=== PATIENT | female | born 1985 | race American Indian/Alaskan Native ===

== ENCOUNTER 2016-08-17 14:43 | Emergency (ER) | payer SELFPAY ==
[2016-08-17 18:11] LABS: Basophils % (Auto) 0.9 % (0.0-1.8); Eosinophils % (Auto) 0.6 % (0.0-4.3); Hematocrit 38.6 % (30.3-42.9); Hemoglobin 12.8 gm/dl (10.1-14.3); Mean Corpuscular HGB Conc 33 % (30-34); Mean Corpuscular Hemoglobin 32 pg (28-32); Mean Corpuscular Volume 96 fl (79-97); Platelet Count 213 K/mm3 (140-440); Red Blood Count 4.03 M/mm3 (3.65-5.03); Red Cell Distribution Width 14.9 % (13.2-15.2)
[2016-08-17 18:13] LABS: Anion Gap 18 mmol/L; BUN/Creatinine Ratio 18.75; Blood Urea Nitrogen 15 mg/dL (7-17); Calcium 8.9 mg/dL (8.4-10.2); Carbon Dioxide 23 mmol/L (22-30); Chloride 97.7 mmol/L (98-107); Glucose 66 mg/dL (65-100); Potassium 3.9 mmol/L (3.6-5.0); Sodium 135 mmol/L (137-145)
[2016-08-17] MEDS ORDERED: LIDOCAINE VISCOUS 2% PO ONE (22:47)
[2016-08-17] MEDS ORDERED: ALUM-MAG HYDROX-SIMETH 200-200-20MG/5ML PO ONE (22:47)
--- NOTE | 2016-08-17 22:51 | Emergency Department Report ---
HPI - General Chief Complaint: Chest Pain Time Seen by Provider: 08/17/16 22:36 - HPI HPI: This is a 30-year-old Afro-[place] Citizen female presents to the emergency department with a complaint of pain to the throat and chest and down into the upper abdomen is been going on for the past 2-3 days. Patient says she feels like she has a lump in the mid chest. She says that it feels like it is hard to get down food, water and sometimes even her own secretions but she is able to do so. The pain is constant but worsens with eating or drinking. She did not take anything for symptoms prior to presentation. She denies any shortness of breath, nausea, vomiting, diaphoresis. No history of NC, CVA, PE/DVT. She does not have a primary care doctor. Past medical history of asthma. No sick contacts at home or recent travel. ED Past Medical Hx - Past Medical History Hx Asthma: Yes Additional medical history: endometriosis - Social History Smoking Status: Never Smoker Substance Use Type: Alcohol - Medications Home Medications: Home Medications Medication Instructions Recorded Confirmed Last Taken Type Ibuprofen [Motrin] 600 mg PO Q8H PRN #50 tablet 12/17/13 07/01/15 Unknown Rx Albuterol Sulfate [Ventolin HFA] 2 puff IH Q4-6H PRN #1 hfa.aer.ad 07/01/15 Unknown Rx guaiFENesin/CODEINE [Robitussin AC] 5 ml PO Q6H PRN #100 ml 07/01/15 Unknown Rx Acetaminophen/Codeine [Tylenol #3] 1 tab PO Q6H PRN #12 tab 02/02/16 Unknown Rx Penicillin Vk [Veetids TAB] 250 mg PO QID #28 tablet 02/02/16 Unknown Rx HYDROcodone/APAP 5-325 [[place] 1 each PO Q6HR PRN #8 tablet 08/18/16 Unknown Rx 5/325] ED Review of Systems ROS: Stated complaint: LUMP IN MIDDLE OF CHEST/DIZZYNESS Other details as noted in HPI Comment: All other systems reviewed and negative Constitutional: denies: chills, fever Eyes: denies: eye pain, eye discharge, vision change ENT: throat pain. denies: ear pain Respiratory: denies: cough, shortness of breath, wheezing Cardiovascular: chest pain. denies: palpitations Gastrointestinal: denies: nausea, vomiting Genitourinary: denies: urgency, dysuria, discharge Musculoskeletal: denies: back pain, joint swelling, arthralgia Skin: denies: rash, lesions Neurological: denies: headache, weakness, paresthesias Physical Exam - Physical Exam Vital Signs: Vital Signs 08/17/16 16:33 Temperature 98.4 F Pulse Rate 92 H Respiratory 18 Rate Blood Pressure 114/78 O2 Sat by Pulse 98 Oximetry Physical Exam: GENERAL: The patient is well-developed well-nourished. HEENT: Normocephalic. Atraumatic. Extraocular motions are intact. Patient has moist mucous membranes. Pupils equal reactive to light bilaterally. NECK: Supple. Trachea is midline. CHEST/LUNGS: Clear to auscultation. There is no respiratory distress noted. HEART/CARDIOVASCULAR: Regular. There is no tachycardia. There is no gallop rub or murmur. ABDOMEN: Abdomen is soft, nontender. Patient has normal bowel sounds. There is no abdominal distention. SKIN: Skin is warm and dry. NEURO: The patient is awake, alert, and oriented. The patient is cooperative. The patient has no focal neurologic deficits. The patient has normal speech and gait. MUSCULOSKELETAL: There is no tenderness or deformity. There is no limitation range of motion. There is no evidence of acute injury. ED Course Vital Signs 08/17/16 16:33 Temperature 98.4 F Pulse Rate 92 H Respiratory 18 Rate Blood Pressure 114/78 O2 Sat by Pulse 98 Oximetry ED Medical Decision Making - Lab Data Result diagrams: 08/17/16 17:43 08/17/16 17:43 - EKG Data -: EKG Interpreted by Me EKG shows normal: sinus rhythm, axis, intervals, QRS complexes, ST-T waves Rate: normal - EKG Data When compared to previous EKG there are: previous EKG unavailable Interpretation: normal EKG, unchanged when compared t (07/01/15) - Radiology Data Radiology results: report reviewed, image reviewed interpreted by me: X-ray of the soft tissue of the neck does not show any foreign body or any acute process. Chest x-ray did not show any acute process. Heart is normal shape and size. No effusions. No pneumothorax. No signs of pneumonia seen. - Medical Decision Making This is a 30-year-old female presents to the emergency department with some midsternal and/or midline chest discomfort appears to worsen with eating or drinking. Patient's vital signs stable throughout her ED course. An x-ray was done of the neck and chest that did not show any foreign body or any signs of occlusion or any acute process. Patient's labs did not show any significant leukocytosis, electrolyte abnormalities, renal insufficiency or glucose abnormalities. Patient had a troponin. EKG does not show any signs of ST elevation NC or cardiac ischemia. Patient was given a GI cocktail and said that it did help some with her discomfort. Patient has a ADIN score of 0. She is low on the well's score criteria and negative on the pulmonary embolus rule out criteria. Patient will be given a referral for primary care and gastroenterology. She was able to display the ability for swallowing liquids well in the emergency department. She will return to the ER with any worsening of her symptoms or any acute distress. - Differential Diagnosis costochondritis, GERD, esophageal obstruction, pneumonia Critical Care Time: No Critical care attestation.: If time is entered above; I have spent that time in minutes in the direct care of this critically ill patient, excluding procedure time. ED Disposition Clinical Impression: Chest pain Qualifiers: Chest pain type: unspecified Qualified Code(s): R07.9 - Chest pain, unspecified Disposition: DISCHARGED TO HOME OR SELFCARE Is pt being admited?: No Condition: Stable Instructions: Chest Pain (ED) Additional Instructions: Please follow-up with a primary care doctor in the next few days. I have also given a referral for a chain offbearer, dr Unger, to follow up regarding the sensation that food and liquid is hard to pass/swallow. Return to the emergency department with any worsening of your symptoms or any acute distress. You've been prescribed a medication that is sedating. Therefore this medication cannot be mixed with alcohol, or taken prior to driving, working, or being responsible for children. Prescriptions: HYDROcodone/APAP 5-325 [[place] 5/325] 1 each PO Q6HR PRN #8 tablet PRN Reason: Pain Referrals: PRIMARY CARE, [Primary Care Provider] - 3-5 Days ELLA NINA MD [Staff Physician] - 3-5 Days JILLIAN UNGER MD [Staff Physician] - 3-5 Days Time of Disposition: 01:16
[2016-08-17 23:38] VITALS: BP 119/64
--- NOTE | 2016-08-17 23:46 | XRay Report ---
FINAL REPORT PROCEDURE: XR NECK SOFT TISSUE TECHNIQUE: Soft tissue neck radiographs, 2 views, including AP and lateral. CPT 99549 HISTORY: Dysphagia. Difficulty swallowing. Hard to swallow food or drink. COMPARISON: No prior studies are available for comparison. FINDINGS: There is no plain film evidence of radiopaque foreign body. There is no plain film evidence of airway narrowing. There is mild curvature of upper thoracic spine to the left. IMPRESSION: 1. There is no plain film evidence of radiopaque foreign body or airway narrowing. 2. There is mild curvature of the upper thoracic spine to the left. 3. If there is continued concern for neck abnormality, additional diagnostic evaluation advised only clinically indicated. 4. Chest x-ray is dictated separately.
--- NOTE | 2016-08-17 23:56 | XRay Report ---
FINAL REPORT PROCEDURE: XR CHEST ROUTINE TWO VIEWS PA AND LATERAL TECHNIQUE: This exam consists of a total of 3 films. These are 1 PA view and 2 lateral views HISTORY: Difficulty swallowing. Dysphagia hard to swallow liquid or food COMPARISON: There no prior chest films to compare FINDINGS: The mediastinal contour and heart size are normal. The lungs are clear with no edema or infiltrate or effusion. There is no plain film evidence of radiopaque foreign IMPRESSION: 1. Negative PA and lateral chest with no plain film evidence of acute finding. 2. Soft tissue neck series performed at the same time as this exam is dictated separately.
== END 2016-08-18 01:39 | disposition home or self-care (01) ==
LOC: ED 14:43
DX: R07.9 Chest pain, unspecified (principal); J45.909 Unspecified asthma, uncomplicated
CPT/HCPCS: 36415; 70360; 71020; 80048; 81025; 84484; 85025; 93005; 93010; 99284

== ENCOUNTER 2019-04-27 00:15 | Emergency (ER) | payer SELFPAY ==
[2019-04-27 01:13] LABS: Bacteria,Urine 1+ /HPF (Negative); Bilirubin,Urine NEG (Negative); Blood,Urine NEG (Negative); Color,Urine Straw (Yellow); Protein,Urine <15 mg/dL mg/dL (Negative); Urobilinogen,Urine < 2.0 mg/dL (<2.0)
[2019-04-27] MEDS ORDERED: ONDANSETRON 4 MG/2 ML INJ IV ONE (01:13)
[2019-04-27] MEDS ORDERED: SODIUM CHLORIDE 0.9% 1000 ML 1,000 ML IV ONE (01:13)
[2019-04-27] MEDS ORDERED: ALUM-MAG HYDROXIDE-SIMETHICONE 200-200-20MG/5ML ORAL LIQD 30 ML PO ONE (01:13)
[2019-04-27] MEDS ORDERED: LIDOCAINE VISCOUS 2% 15 ML ORAL LIQD PO ONE (01:13)
[2019-04-27] MEDS ORDERED: FAMOTIDINE 20 MG/2 ML INJ IV ONE (01:13)
[2019-04-27 01:17] LABS: Hematocrit 38.2 % (30.3-42.9); Hemoglobin 12.8 gm/dl (10.1-14.3); Mean Corpuscular HGB Conc 33 % (30-34); Mean Corpuscular Volume 102 fl (79-97); Platelet Count 210 K/mm3 (140-440); Red Blood Count 3.77 M/mm3 (3.65-5.03); Red Cell Distribution Width 14.2 % (13.2-15.2)
[2019-04-27 01:28] LABS: Alanine Aminotransferase 66 units/L (7-56); Albumin 4.3 g/dL (3.9-5); BUN/Creatinine Ratio 10; Blood Urea Nitrogen 6 mg/dL (7-17); Calcium 9.1 mg/dL (8.4-10.2); Hemolysis Index 0
[2019-04-27 02:01] LABS: Basophils % (Manual) 0 % (0.0-1.8); Eosinophils % (Manual) 0 % (0.0-4.3); Total Cells Counted 100
[2019-04-27 02:02] LABS: Large Platelets Rare; Platelet Estimate Cons; Stomatocytes Rare
--- NOTE | 2019-04-27 02:18 | Cat Scan Report ---
CT ABDOMEN AND PELVIS WITHOUT CONTRAST INDICATION / CLINICAL INFORMATION: Abdominal pain. TECHNIQUE: Axial CT images were obtained through the abdomen and pelvis without IV contrast. All CT scans at [facility] location are performed using CT dose reduction for ALARA by means of automated exposure control. COMPARISON: None available. FINDINGS: LOWER CHEST: No significant abnormality. LIVER: Hepatomegaly.. GALLBLADDER: No significant abnormality. BILE DUCTS: No significant abnormality. PANCREAS: No significant abnormality. SPLEEN: No significant abnormality. ADRENALS: No significant abnormality. RIGHT KIDNEY and URETER: No significant abnormality. LEFT KIDNEY and URETER: No significant abnormality. STOMACH and SMALL BOWEL: No significant abnormality. COLON: No significant abnormality. APPENDIX: No significant abnormality. PERITONEUM: No free fluid. No free air. No fluid collection. LYMPH NODES: No significant adenopathy. AORTA and ARTERIES: No significant abnormality. IVC and VEINS: No significant abnormality. URINARY BLADDER: Poorly visualized secondary to streak artifact from external foreign body. REPRODUCTIVE ORGANS: No significant abnormality. ADDITIONAL FINDINGS: None. SKELETAL SYSTEM: No significant abnormality. IMPRESSION: Hepatomegaly. No acute findings identified within the limits of the noncontrast technique. See above findings. Signer Name: Wood Faulkner MD Signed: 04/27/2019 2:13 AM Workstation Name: [employer]
--- NOTE | 2019-04-27 04:25 | Ultrasound Report ---
ULTRASOUND ABDOMEN, LIMITED (RIGHT UPPER QUADRANT) INDICATION: Epigastric and RUQ pain. COMPARISON: None available. FINDINGS: Pancreas: Visualized portion shows no significant abnormality. Liver: Normal. Gallbladder: Normal. Bile ducts: Normal. Common Bile Duct measures 2 mm. Free fluid: None. Additional Findings: None. IMPRESSION: 1. No sonographic abnormality of the right upper quadrant. Signer Name: Wood Faulkner MD Signed: 04/27/2019 4:20 AM Workstation Name: [email or web address] ([employer])
--- NOTE | 2019-04-27 04:37 | Emergency Department Report ---
ED Abdominal Pain HPI - General Chief Complaint: Abdominal Pain Stated Complaint: STOMACH PAIN VOMITING Source: patient Mode of arrival: Ambulatory Limitations: No Limitations - History of Present Illness Initial Comments: Patient is a 33-year-old -[place] female with a history of chronic hepatitis who presents to the ED with acute onset persistent diffuse upper abdominal pain for the nausea and vomiting for the last 2 days worse in the last 12 hours. Patient denies dizziness, chest pain, shortness of breath, dysuria, urinary frequency and urgency, fever, chills, cough, sore throat, hematochezia, hematemesis, vaginal discharge or vaginal bleeding. MD Complaint: abdominal pain, other (nausea and vomiting) -: Sudden, days(s) (2) Location: periumbilical, RUQ, epigastric Radiation: none Migration to: no migration Severity scale (0 -10): 7 Quality: cramping, sharp Consistency: constant Improves With: nothing Worsens With: nothing Associated Symptoms: denies other symptoms, nausea, vomiting. denies: diarrhea, fever, chills, constipation, dysuria, hematemesis, hematochezia, melena, ano rexia - Related Data Previous Rx's Medication Instructions Recorded Last Taken Type Ibuprofen [Motrin] 600 mg PO Q8H PRN #50 tablet 12/17/13 Unknown Rx Albuterol Sulfate [Ventolin HFA] 2 puff IH Q4-6H PRN #1 hfa.aer.ad 07/01/15 Unknown Rx guaiFENesin/CODEINE [Robitussin AC] 5 ml PO Q6H PRN #100 ml 07/01/15 Unknown Rx Acetaminophen/Codeine [Tylenol #3] 1 tab PO Q6H PRN #12 tab 02/02/16 Unknown Rx Penicillin Vk [Veetids TAB] 250 mg PO QID #28 tablet 02/02/16 Unknown Rx HYDROcodone/APAP 5-325 [[place] 1 each PO Q6HR PRN #8 tablet 08/18/16 Unknown Rx 5/325] Acetaminophen/Codeine [Tylenol 1 tab PO Q6H PRN #12 tab 04/27/19 Unknown Rx /Codeine # 3 tab] Dicyclomine [Bentyl] 20 mg PO Q6H PRN #30 tablet 04/27/19 Unknown Rx Famotidine [Pepcid] 20 mg PO Q12H #60 tablet 04/27/19 Unknown Rx Ondansetron [Zofran Odt] 4 mg PO Q6HR PRN #20 tab.rapdis 04/27/19 Unknown Rx Allergies Allergy/AdvReac Type Severity Reaction Status Date / Time No Known Allergies Allergy Unverified 12/17/13 08:10 ED Review of Systems ROS: Stated complaint: STOMACH PAIN VOMITING Other details as noted in HPI Constitutional: denies: chills, fever Eyes: denies: eye pain, eye discharge, vision change ENT: denies: ear pain, throat pain Respiratory: denies: cough, shortness of breath, wheezing Cardiovascular: denies: chest pain, palpitations Endocrine: no symptoms reported Gastrointestinal: abdominal pain, nausea, vomiting. denies: diarrhea Genitourinary: denies: urgency, dysuria, discharge Musculoskeletal: denies: back pain, joint swelling, arthralgia Skin: denies: rash, lesions Neurological: denies: headache, weakness, paresthesias Psychiatric: denies: anxiety, depression Hematological/Lymphatic: denies: easy bleeding, easy bruising ED Past Medical Hx - Past Medical History Previous Medical History?: Yes Hx Asthma: Yes Additional medical history: endometriosis - Surgical History Past Surgical History?: No - Social History Smoking Status: Never Smoker Substance Use Type: None - Medications Home Medications: Home Medications Medication Instructions Recorded Confirmed Last Taken Type Ibuprofen [Motrin] 600 mg PO Q8H PRN #50 tablet 12/17/13 07/01/15 Unknown Rx Albuterol Sulfate [Ventolin HFA] 2 puff IH Q4-6H PRN #1 hfa.aer.ad 07/01/15 Unknown Rx guaiFENesin/CODEINE [Robitussin AC] 5 ml PO Q6H PRN #100 ml 07/01/15 Unknown Rx Acetaminophen/Codeine [Tylenol #3] 1 tab PO Q6H PRN #12 tab 02/02/16 Unknown Rx Penicillin Vk [Veetids TAB] 250 mg PO QID #28 tablet 02/02/16 Unknown Rx HYDROcodone/APAP 5-325 [[place] 1 each PO Q6HR PRN #8 tablet 08/18/16 Unknown Rx 5/325] Acetaminophen/Codeine [Tylenol 1 tab PO Q6H PRN #12 tab 04/27/19 Unknown Rx /Codeine # 3 tab] Dicyclomine [Bentyl] 20 mg PO Q6H PRN #30 tablet 04/27/19 Unknown Rx Famotidine [Pepcid] 20 mg PO Q12H #60 tablet 04/27/19 Unknown Rx Ondansetron [Zofran Odt] 4 mg PO Q6HR PRN #20 tab.rapdis 04/27/19 Unknown Rx ED Physical Exam - General Limitations: No Limitations General appearance: alert, in no apparent distress - Head Head exam: Present: atraumatic, normocephalic, normal inspection - Eye Eye exam: Present: normal appearance, PERRL, EOMI Pupils: Present: normal accommodation - ENT ENT exam: Present: normal exam, normal orophraynx, mucous membranes moist, TM's normal bilaterally, normal external ear exam - Neck Neck exam: Present: normal inspection, full ROM - Respiratory Respiratory exam: Present: normal lung sounds bilaterally. Absent: respiratory distress, wheezes, rales, stridor, chest wall tenderness, decreased breath sounds, prolonged expiratory - Cardiovascular Cardiovascular Exam: Present: regular rate, normal rhythm. Absent: systolic murmur, diastolic murmur, rubs, gallop - GI/Abdominal GI/Abdominal exam: Present: soft, tenderness (palpable periumbilical, epigastric and right upper quadrant tenderness with no guarding.), normal bowel sounds. Absent: guarding, rebound, hyperactive bowel sounds, hypoactive bowel sounds, mass - Extremities Exam Extremities exam: Present: normal inspection, full ROM, normal capillary refill - Back Exam Back exam: Present: normal inspection, full ROM. Absent: tenderness, CVA tenderness (L), muscle spasm - Neurological Exam Neurological exam: Present: alert, oriented X3, CN II-XII intact, normal gait, reflexes normal - Psychiatric Psychiatric exam: Present: normal affect, normal mood - Skin Skin exam: Present: warm, dry, intact, normal color. Absent: rash ED Medical Decision Making - Lab Data Result diagrams: 04/27/19 00:43 04/27/19 00:43 - Radiology Data Radiology results: report reviewed, image reviewed Findings [facility] [address] [place] [address] Cat Scan Report Signed Patient: MARIELA BEAR MR# : [id number] : 1985 Acct:[id number] Age/Sex: 33 / F ADM Date: 04/27/19 Loc: ED Attending Dr: Ordering Physician: KAYLI PEREZ Date of Service: 04/27/19 Procedure(s): CT abdomen pelvis wo con Accession Number(s): [id number] cc: KAYLI PEREZ CT ABDOMEN AND PELVIS WITHOUT CONTRAST INDICATION / CLINICAL INFORMATION: Abdominal pain. TECHNIQUE: Axial CT images were obtained through the abdomen and pelvis without IV contrast. All CT scans at this location are performed using CT dose reduction for ALARA by means of automated exposure control. COMPARISON: None available. FINDINGS: LOWER CHEST: No significant abnormality. LIVER: Hepatomegaly.. GALLBLADDER: No significant abnormality. BILE DUCTS: No significant abnormality. PANCREAS: No significant abnormality. SPLEEN: No significant abnormality. ADRENALS: No significant abnormality. RIGHT KIDNEY and URETER: No significant abnormality. LEFT KIDNEY and URETER: No significant abnormality. STOMACH and SMALL BOWEL: No significant abnormality. COLON: No significant abnormality. APPENDIX: No significant abnormality. PERITONEUM: No free fluid. No free air. No fluid collection. LYMPH NODES: No significant adenopathy. AORTA and ARTERIES: No significant abnormality. IVC and VEINS: No significant abnormality. URINARY BLADDER: Poorly visualized secondary to streak artifact from external foreign body. REPRODUCTIVE ORGANS: No significant abnormality. ADDITIONAL FINDINGS: None. SKELETAL SYSTEM: No significant abnormality. IMPRESSION: Hepatomegaly. No acute findings identified within the limits of the noncontrast technique. See above findings. Signer Name: Wood Faulkner MD Signed: 04/27/2019 2:13 AM Workstation Name: [id number] Transcribed By: Dictated By: Wood Faulkner MD Electronically Authenticated By: Wood Faulkner MD Signed Date/Time: 04/27/19212 DD/ 1 TD/TT: Findings [facility] [address] [place] [address] Ultrasound Report Signed Patient: MARIELA BEAR MR# : [id number] : 1985 Acct:[id number] Age/Sex: 33 / F ADM Date: 04/27/19 Loc: ED Attending Dr: Ordering Physician: KAYLI PEREZ Date of Service: 04/27/19 Procedure(s): US abdomen limited Accession Number(s): [id number] cc: KAYLI PEREZ ULTRASOUND ABDOMEN, LIMITED (RIGHT UPPER QUADRANT) INDICATION: Epigastric and RUQ pain. COMPARISON: None available. FINDINGS: Pancreas: Visualized portion shows no significant abnormality. Liver: Normal. Gallbladder: Normal. Bile ducts: Normal. Common Bile Duct measures 2 mm. Free fluid: None. Additional Findings: None. IMPRESSION: 1. No sonographic abnormality of the right upper quadrant. Signer Name: Wood Faulkner MD Signed: 04/27/2019 4:20 AM Workstation Name: [id number] Transcribed By: BC Dictated By: Wood Faulkner MD Electronically Authenticated By: Wood Faulkner MD Signed Date/Time: 04/27/19419 DD/ 9 - Medical Decision Making This is a 33-year-old -[place] female with a history of chronic hepatitis who presents to the ED with acute onset persistent abdominal pain in the epigastric pain periumbilical area that radiated to the right upper quadrant with nausea and vomiting for 2 days worse in the last 8 hours. Patient denies chest pain, shortness of breath, diarrhea, fever, chills, dysuria, urinary frequency and urgency, dizziness, headache, syncope, cough, or sore throat, vaginal bleeding or vaginal discharge. In the ED, patient is alert and oriented 3 and is not in distress but appears uncomfortable. Patient was treated for pain in the ED and also given antiemetics and antacids. Lab test results were reviewed and are significant for AST of 227, ALT of 92 and lipase of 102. Progressive lab test results are nonactionable. Gallbladder ultrasound shows no gallstones or gallbladder wall thickening. Abdomen pelvis CT scan without contrast shows hepatomegaly with no acute abnormalities. On reevaluation, patient's pain is well controlled with medications. Patient symptoms are likely due to acute pancreatitis based on the lab test results also elevated lipase level and elevated LFTs. Patient was discharged home on pain medications and advised to maintain a clear liquid diet for 12-24 hours and follow-up with her primary care physician in 2-3 days for reevaluation or return to the ED immediately if symptoms get worse. - Differential Diagnosis GERD; Gallstones; Pancreatitis; UTI; Gastroenteritis Critical care attestation.: If time is entered above; I have spent that time in minutes in the direct care of this critically ill patient, excluding procedure time. ED Disposition Clinical Impression: Nausea and vomiting in adult Abdominal pain Qualifiers: Abdominal location: upper abdomen, unspecified Qualified Code(s): R10.10 - Upper abdominal pain, unspecified Acute pancreatitis Qualifiers: Pancreatitis type: other Acute pancreatitis complication: unspecified Qualified Code(s): K85.80 - Other acute pancreatitis without necrosis or infection Disposition: TO HOME OR SELFCARE Is pt being admited?: No Does the pt Need Aspirin: No Condition: Stable Instructions: Abdominal Pain (ED), Pancreatitis (ED), Acute Nausea and Vomiting (ED) Additional Instructions: Maintain a clear liquid diet for 12-24 hours, take medications for pain and for nausea and vomiting. Follow-up with your primary care physician in 2-3 days for reevaluation or return to the ED immediately if symptoms get worse. Prescriptions: Dicyclomine [Bentyl] 20 mg PO Q6H PRN #30 tablet PRN Reason: ABDOMINAL PAIN Famotidine [Pepcid] 20 mg PO Q12H #60 tablet Acetaminophen/Codeine [Tylenol /Codeine # 3 tab] 1 tab PO Q6H PRN #12 tab PRN Reason: Pain , Severe (7-10) Ondansetron [Zofran Odt] 4 mg PO Q6HR PRN #20 tab.rapdis PRN Reason: Nausea Referrals: [facility] [Outside] - 3-5 Days Forms: Work/School Release Form(ED) Time of Disposition: 04:46 Print Language: UZBEK
[2019-04-27 05:05] VITALS: BP 100/60
== END 2019-04-27 05:05 | disposition home or self-care (01) ==
LOC: ED 00:15
DX: K85.80 Other acute pancreatitis without necrosis or infection (principal); J45.909 Unspecified asthma, uncomplicated
CPT/HCPCS: 36415; 74176; 76705; 80053; 81001; 83690; 84703; 85007; 85025; 96361; 96374; 96375; 99284; J2405; J7030